=== PATIENT | female | born 1975 | race Hispanic/Latino ===

== ENCOUNTER 2020-07-14 21:17 | Inpatient (IN) | payer OTHER ==
[2020-07-14 22:48] LABS: ALT (SGPT) 19 U/L (8-55); AST (SGOT) 9 U/L (5-34); Albumin 3.1 g/dL (3.5-5.0); Alkaline Phosphatase 185 U/L (40-110); Anion Gap 15 mmol/L (10-20); BUN (Urea Nitrogen) 57 mg/dL (7.0-18.7); Bilirubin, Total 0.2 mg/dL (0.2-1.2); CK (CPK) 20 U/L (29-168); Calc. Creatinine Clearance 0 mL/min (70-130); Calcium 8.5 mg/dL (7.8-10.44); Carbon Dioxide 20 mmol/L (22-29); Chloride 98 mmol/L (98-107); Globulin 3.6 g/dL (2.4-3.5); Potassium 3.7 mmol/L (3.5-5.1); Protein, Total 6.7 g/dL (6.0-8.3); Sodium 129 mmol/L (136-145)
[2020-07-14 22:54] LABS: Glucose 584 mg/dL (70-105)
[2020-07-14 23:45] LABS: #Basophils 0.1 10x3/uL (0.0-0.2); #Eosinphils 0.1 10x3/uL (0.0-0.5); #Monocytes 0.7 10x3/uL (0.0-1.1); #Neutrophils 9.7 10x3/uL (1.5-8.4); %Basophils 0.5 % (0.0-2.0); %Eosinophils 0.7 % (0.0-6.0); %Lymphocytes 18.4 % (18.0-47.0); %Monocytes 5.5 % (0.0-10.0); %Neutrophils 73.8 % (40.0-75.0); Hemoglobin 11.6 g/dL (12.0-15.5); Mean Corpuscular HGB CONC 33.4 g/dL (32.0-36.0); Mean Corpuscular Hemoglobin 25.4 pg (27.0-33.0); Mean Corpuscular Volume 76.1 fl (81.6-98.3); Mean Platelet Volume 9.9 fl (7.4-10.4); Platelet Count 530 10x3/uL (150-450); RBC Distribution Width 14.2 % (11.5-14.5); Red Blood Cell (RBC) Count 4.56 10x6/uL (3.90-5.03); White Blood Cell (WBC) Count 13.1 10x3/uL (3.5-10.5)
[2020-07-15] MEDS ORDERED: Labetalol HCl 100 MG/20 ML VIAL ONE (02:06)
[2020-07-15] MEDS ORDERED: Lantus 1000 UNITS/10 ML VIAL ONE (02:09)
[2020-07-15 02:13] LABS: Actual Bicarbonate (HCO3v) 22 mEq/L (22-28); Base Excess -4.7 mEq/L (-2.0 to +3.0); Calcium, Ionized (venous) 1.15 mmol/L (1.16-1.32); Chloride (VBG) 103 mmol/L (98-106); Hemoglobin (Hb) 12.3 g/dL (11.7-16.0); Potassium (VBG) 4.31 mmol/L (3.70-5.30); Puncture Site Other Site; Sodium 131.8 mmol/L (133-146)
[2020-07-15] MEDS ORDERED: cloNIDine 0.1 MG TAB ONE (02:46)
[2020-07-15] MEDS ORDERED: Nitroglycerin 2% Ointment 1 INCH/1 GM Packet ONE (02:46)
[2020-07-15] MEDS ORDERED: Zolpidem Tartrate 5 MG TAB PO PRN (02:53)
[2020-07-15] MEDS ORDERED: Calcium Carbonate 500 MG ChewTAB PO PRN (02:53)
[2020-07-15] MEDS ORDERED: Ondansetron PF 4 MG/2 ML Vial IVP PRN (02:53)
[2020-07-15] MEDS ORDERED: Dextrose 50% Abboject 50 ML SYRINGE SLOW IVP PRN (02:53)
[2020-07-15] MEDS ORDERED: Guaifenesin DM 100-10/5 ML UDCUP PO PRN (02:53)
[2020-07-15] MEDS ORDERED: Dextrose 5% in Water 1,000 ML IV PRN (02:53)
[2020-07-15] MEDS ORDERED: HYDROcodone/Acetaminophen 5/325 mg Tablet PO PRN (02:53)
[2020-07-15] MEDS ORDERED: Acetaminophen 325 MG TAB PO PRN (02:53)
[2020-07-15] MEDS ORDERED: Senokot S 8.6-50 MG TAB PO PRN (02:53)
[2020-07-15] MEDS ORDERED: hydrALAZINE 20 MG/ML VIAL SLOW IVP PRN (02:57)
[2020-07-15] MEDS ORDERED: 1/2 NS w/KCL 20 mEq 1,000 ML IV SCH (03:15)
[2020-07-15 04:23] VITALS: BMI 36.7
[2020-07-15] MEDS ORDERED: HumaLOG 300 UNITS/3 ML VIAL SC SCH (04:45)
[2020-07-15 05:39] LABS: Anion Gap 13 mmol/L (10-20); BUN (Urea Nitrogen) 44 mg/dL (7.0-18.7); Calc. Creatinine Clearance 61 mL/min (70-130); Calcium 7.6 mg/dL (7.8-10.44); Carbon Dioxide 19 mmol/L (22-29); Chloride 105 mmol/L (98-107); Glucose 468 mg/dL (70-105); Potassium 3.3 mmol/L (3.5-5.1); Sodium 134 mmol/L (136-145)
[2020-07-15] MEDS: Enoxaparin Sodium 30 MG/0.3 ML SYRINGE SC SCH (08:21)
[2020-07-15] MEDS: Carvedilol 6.25 MG TAB PO SCH ×2 (08:21→17:21)
[2020-07-15] MEDS: Amlodipine 10 MG TAB PO SCH (08:21)
[2020-07-15] MEDS: hydrALAZINE 25 MG TAB PO SCH ×4 (08:21→21:08)
[2020-07-15] MEDS: Alogliptin 6.25 MG TAB PO SCH (08:21)
[2020-07-15] MEDS: Lantus 1000 UNITS/10 ML VIAL SC SCH ×2 (10:31→20:55)
[2020-07-15 11:06] LABS: Anion Gap 10 mmol/L (10-20); BUN (Urea Nitrogen) 49 mg/dL (7.0-18.7); Calc. Creatinine Clearance 54 mL/min (70-130); Calcium 7.7 mg/dL (7.8-10.44); Carbon Dioxide 22 mmol/L (22-29); Chloride 106 mmol/L (98-107); Glucose 361 mg/dL (70-105); Potassium 3.6 mmol/L (3.5-5.1); Sodium 134 mmol/L (136-145)
[2020-07-15 13:42] LABS: SARS-CoV-2 PCR by NAA Not Detected (NotDetected)
[2020-07-15] MEDS: HumaLOG 300 UNITS/3 ML VIAL SC PRN ×2 (17:21→20:55)
[2020-07-15] MEDS: Atorvastatin Calcium 20 MG TAB PO SCH (20:52)
[2020-07-15] MEDS ORDERED: Lantus 1000 UNITS/10 ML VIAL SC SCH (21:00)
[2020-07-15] MEDS ORDERED: FLU VACC QS2020-21(6MOS UP)/PF 60 MCG/0.5 ML SYRINGE IM ONE (21:00)
[2020-07-15 21:18] LABS: Bilirubin Neg (Negative); Blood, Urine 150 (Negative); Clarity Clear (Clear); Glucose, Urine (Dipstick) >=1000 mg/dL (Negative); Ketone, Urine Negative (Negative); Leukocyte 25 (Negative); Nitrite Negative (Negative); Protein, Urine (Dipstick) 500 mg/dl (Neg-Trace); Urobilinogen Normal mg/dL (Less than 2)
[2020-07-15 21:28] LABS: Bacteria/HPF 4+ HPF (None Seen); Mucous/LPF 2+ LPF (<2+)
[2020-07-15 21:29] LABS: WBC/HPF 21-50 HPF (0-3); White Blood Cell Cast 0-3 LPF (None Seen)
[2020-07-16] MEDS: HumaLOG 300 UNITS/3 ML VIAL SC PRN ×3 (05:02→20:31)
[2020-07-16 05:38] LABS: #Basophils 0.1 10x3/uL (0.0-0.2); #Eosinphils 0.2 10x3/uL (0.0-0.5); #Monocytes 0.9 10x3/uL (0.0-1.1); #Neutrophils 7.6 10x3/uL (1.5-8.4); %Basophils 0.5 % (0.0-2.0); %Eosinophils 1.6 % (0.0-6.0); %Lymphocytes 33.5 % (18.0-47.0); %Neutrophils 56.4 % (40.0-75.0); Hemoglobin 9.2 g/dL (12.0-15.5); Mean Corpuscular HGB CONC 32.1 g/dL (32.0-36.0); Mean Corpuscular Hemoglobin 24.5 pg (27.0-33.0); Mean Corpuscular Volume 76.5 fl (81.6-98.3); Mean Platelet Volume 9.9 fl (7.4-10.4); Platelet Count 415 10x3/uL (150-450); RBC Distribution Width 14.6 % (11.5-14.5); Red Blood Cell (RBC) Count 3.75 10x6/uL (3.90-5.03); White Blood Cell (WBC) Count 13.5 10x3/uL (3.5-10.5)
[2020-07-16 05:56] LABS: Anion Gap 10 mmol/L (10-20); BUN (Urea Nitrogen) 54 mg/dL (7.0-18.7); Calc. Creatinine Clearance 51 mL/min (70-130); Calcium 7.8 mg/dL (7.8-10.44); Carbon Dioxide 22 mmol/L (22-29); Chloride 106 mmol/L (98-107); Glucose 207 mg/dL (70-105); Magnesium 2.1 mg/dL (1.6-2.6); Potassium 3.6 mmol/L (3.5-5.1); Sodium 134 mmol/L (136-145)
[2020-07-16] MEDS ORDERED: Lantus 1000 UNITS/10 ML VIAL SC SCH (08:14)
[2020-07-16] MEDS: hydrALAZINE 25 MG TAB PO SCH ×4 (08:45→20:25)
[2020-07-16] MEDS: Amlodipine 10 MG TAB PO SCH (08:45)
[2020-07-16] MEDS: Enoxaparin Sodium 30 MG/0.3 ML SYRINGE SC SCH (08:45)
[2020-07-16] MEDS: Lantus 1000 UNITS/10 ML VIAL SC SCH ×2 (08:45→20:30)
[2020-07-16] MEDS: Alogliptin 6.25 MG TAB PO SCH (08:45)
[2020-07-16] MEDS: Carvedilol 6.25 MG TAB PO SCH ×2 (08:45→18:05)
[2020-07-16 08:49] LABS: Hemoglobin A1c 11.2 % (4.0-6.0)
[2020-07-16] MEDS: Sodium Chloride 0.9% 1,000 ML IV SCH ×2 (18:35→18:46)
[2020-07-16] MEDS: Atorvastatin Calcium 20 MG TAB PO SCH (20:25)
[2020-07-17] MEDS: HumaLOG 300 UNITS/3 ML VIAL SC PRN (04:47)
[2020-07-17] MEDS: Sodium Chloride 0.9% 1,000 ML IV SCH (06:05)
[2020-07-17 06:21] LABS: #Basophils 0.1 10x3/uL (0.0-0.2); #Eosinphils 0.2 10x3/uL (0.0-0.5); #Neutrophils 7.5 10x3/uL (1.5-8.4); %Basophils 0.5 % (0.0-2.0); %Eosinophils 1.6 % (0.0-6.0); %Lymphocytes 29.2 % (18.0-47.0); %Monocytes 8.1 % (0.0-10.0); %Neutrophils 59.8 % (40.0-75.0); Hemoglobin 9.9 g/dL (12.0-15.5); Mean Corpuscular HGB CONC 31.5 g/dL (32.0-36.0); Mean Corpuscular Hemoglobin 24.6 pg (27.0-33.0); Mean Corpuscular Volume 77.9 fl (81.6-98.3); Mean Platelet Volume 10.3 fl (7.4-10.4); Platelet Count 432 10x3/uL (150-450); RBC Distribution Width 14.7 % (11.5-14.5); Red Blood Cell (RBC) Count 4.03 10x6/uL (3.90-5.03); White Blood Cell (WBC) Count 12.5 10x3/uL (3.5-10.5)
[2020-07-17 06:32] LABS: ALT (SGPT) 10 U/L (8-55); AST (SGOT) 9 U/L (5-34); Albumin 2.5 g/dL (3.5-5.0); Alkaline Phosphatase 109 U/L (40-110); Anion Gap 10 mmol/L (10-20); BUN (Urea Nitrogen) 40 mg/dL (7.0-18.7); Bilirubin, Total 0.1 mg/dL (0.2-1.2); Calc. Creatinine Clearance 70 mL/min (70-130); Calcium 7.9 mg/dL (7.8-10.44); Carbon Dioxide 23 mmol/L (22-29); Chloride 107 mmol/L (98-107); Globulin 2.7 g/dL (2.4-3.5); Glucose 207 mg/dL (70-105); Phosphorus 3.9 mg/dL (2.3-4.7); Potassium 3.8 mmol/L (3.5-5.1); Protein, Total 5.2 g/dL (6.0-8.3); Sodium 136 mmol/L (136-145)
[2020-07-17] MEDS: Amlodipine 10 MG TAB PO SCH (08:44)
[2020-07-17] MEDS: Alogliptin 6.25 MG TAB PO SCH (08:45)
[2020-07-17] MEDS: hydrALAZINE 25 MG TAB PO SCH ×2 (08:45→13:24)
[2020-07-17] MEDS: Carvedilol 6.25 MG TAB PO SCH (08:45)
[2020-07-17] MEDS: Enoxaparin Sodium 30 MG/0.3 ML SYRINGE SC SCH (08:45)
[2020-07-17] MEDS: Lantus 1000 UNITS/10 ML VIAL SC SCH (08:49)
[2020-07-17 17:34] VITALS: BP 159/85; TEMP 97.9
[2020-07-17] MEDS ORDERED: Lantus 1000 UNITS/10 ML VIAL SC SCH (21:00)
== END 2020-07-17 17:20 | disposition home or self-care (01) | DRG 638 ==
LOC: CSHERS 21:17 → CSHTELE 07-15 04:17
PROVIDERS: ADMIT Student in an Organized Health Care Education/Training Program; ATTEND Internal Medicine
DX: E11.00 Type 2 diabetes mellitus with hyperosmolarity without nonketotic hyperglycemic-hyperosmolar coma (NKHHC) (principal); N17.9 Acute kidney failure, unspecified; E86.0 Dehydration; I16.0 Hypertensive urgency; E78.5 Hyperlipidemia, unspecified; E66.01 Morbid (severe) obesity due to excess calories; Z68.36 Body mass index [BMI] 36.0-36.9, adult; I12.9 Hypertensive chronic kidney disease with stage 1 through stage 4 chronic kidney disease, or unspecified chronic kidney disease; E11.22 Type 2 diabetes mellitus with diabetic chronic kidney disease; N18.2 Chronic kidney disease, stage 2 (mild); E88.81 Metabolic syndrome and other insulin resistance; D50.9 Iron deficiency anemia, unspecified; Z20.822 Contact with and (suspected) exposure to COVID-19
CPT/HCPCS: 36415; 36416; 80048; 80053; 81001; 82010; 82550; 82805; 83036; 83735; 84100; 85025; 87635; 96374; J1650; J1815; J3480; U0003; U0005

== ENCOUNTER 2021-12-24 04:35 | Inpatient (IN) | payer OTHER ==
[2021-12-24] MEDS ORDERED: Amlodipine 5 MG TAB ONE (05:38)
[2021-12-24] MEDS ORDERED: Furosemide 40 MG/4 ML VIAL ONE (05:38)
[2021-12-24] MEDS ORDERED: Nitroglycerin 2% Ointment 1 INCH/1 GM Packet ONE (05:39)
[2021-12-24 05:50] LABS: ALT (SGPT) 13 U/L (8-55); AST (SGOT) 22 U/L (5-34); Albumin 3.3 g/dL (3.5-5.0); Alkaline Phosphatase 118 U/L (40-110); Anion Gap 14 mmol/L (10-20); BUN (Urea Nitrogen) 43 mg/dL (7.0-18.7); Bilirubin, Total 0.3 mg/dL (0.2-1.2); Calc. Creatinine Clearance 0 mL/min (70-130); Calcium 8.2 mg/dL (7.8-10.44); Carbon Dioxide 21 mmol/L (22-29); Chloride 106 mmol/L (98-107); Estimated GFR 13; Globulin 2.7 g/dL (2.4-3.5); Glucose 353 mg/dL (70-105); Potassium 4.5 mmol/L (3.5-5.1); Sodium 136 mmol/L (136-145)
[2021-12-24 05:57] LABS: #Basophils 0.1 10x3/uL (0.0-0.2); #Eosinphils 0.1 10x3/uL (0.0-0.5); #Monocytes 0.7 10x3/uL (0.0-1.1); #Neutrophils 9.4 10x3/uL (1.5-8.4); %Basophils 0.6 % (0.0-2.0); %Eosinophils 0.8 % (0.0-6.0); %Lymphocytes 14.5 % (18.0-47.0); %Monocytes 5.4 % (0.0-10.0); %Neutrophils 78.3 % (40.0-75.0); Mean Corpuscular HGB CONC 30.9 g/dL (32.0-36.0); Mean Corpuscular Hemoglobin 23.1 pg (27.0-33.0); Mean Corpuscular Volume 74.6 fl (81.6-98.3); Mean Platelet Volume 10.7 fl (7.4-10.4); Platelet Count 397 10x3/uL (150-450); RBC Distribution Width 15.8 % (11.5-14.5); Red Blood Cell (RBC) Count 3.47 10x6/uL (3.90-5.03)
[2021-12-24 06:11] LABS: CKMB 12.6 ng/mL (0-6.6)
[2021-12-24] MEDS ORDERED: Lisinopril 10 MG TAB ONE (06:16)
[2021-12-24] MEDS ORDERED: Aspirin 325 MG TAB ONE (06:16)
[2021-12-24] MEDS ORDERED: Nitroglycerin 50 MG/250 ML BOT 250 ML ONE (06:54)
[2021-12-24] MEDS ORDERED: Heparin 5,000 UNITS/ML VIAL ONE (06:55)
[2021-12-24] MEDS ORDERED: Heparin 25,000 units/D5W 500 ML ONE (06:55)
[2021-12-24] MEDS ORDERED: Heparin 25,000 units/D5W 500 ML IVPB SCH (07:30)
[2021-12-24] MEDS ORDERED: Aspirin Chewable 81 MG TAB PO SCH (07:30)
[2021-12-24] MEDS ORDERED: Acetaminophen 325 MG TAB PO PRN (07:30)
[2021-12-24] MEDS ORDERED: Nitroglycerin 50 MG/250 ML BOT 250 ML IVPB SCH (07:30)
[2021-12-24] MEDS ORDERED: Heparin 10,000 UNITS/ 10 ML VIAL SLOW IVP SCH (07:30)
[2021-12-24] MEDS ORDERED: Ondansetron PF 4 MG/2 ML Vial IVP PRN (07:30)
[2021-12-24 08:06] LABS: SARS-CoV-2 NAA Rapid Test Not Detected (NotDetected)
[2021-12-24 08:12] LABS: Troponin I 4.763 ng/mL (< 0.028)
[2021-12-24 08:22] LABS: Hemoglobin 7.7 g/dL (12.0-15.5); Platelet Count 362 10x3/uL (150-450)
[2021-12-24] MEDS ORDERED: Famotidine/PF 20 mg/2ml Vial SLOW IVP SCH (11:00)
[2021-12-24] MEDS ORDERED: Dextrose 50% Abboject 50 ML SYRINGE SLOW IVP PRN (12:39)
[2021-12-24] MEDS ORDERED: HumaLOG 300 UNITS/3 ML VIAL SC PRN (12:39)
[2021-12-24] MEDS ORDERED: Dextrose 5% in Water 1,000 ML IV PRN (12:39)
[2021-12-24] MEDS ORDERED: Furosemide 40 MG/4 ML VIAL SLOW IVP SCH (13:30)
[2021-12-24 13:32] LABS: Iron 22 ug/dL (50-170); Iron Binding Capacity, Total 356 mcg/dL (265-497)
[2021-12-24 13:40] LABS: Hemoglobin A1c 6.9 % (4.0-6.0)
[2021-12-24] MEDS: HumaLOG 300 UNITS/3 ML VIAL SC PRN ×2 (14:15→16:52)
[2021-12-24 14:42] LABS: Bilirubin Neg (Negative); Blood, Urine 50 (Negative); Clarity Clear (Clear); Glucose, Urine (Dipstick) 250 mg/dL (Negative); Ketone, Urine Negative (Negative); Leukocyte Negative (Negative); Nitrite Negative (Negative); Protein, Urine (Dipstick) 500 mg/dl (Neg-Trace); Urobilinogen Normal mg/dL (Less than 2)
[2021-12-24 14:43] LABS: Urine Culture Reflex No No
[2021-12-24 14:55] LABS: RBC/HPF 0-3 HPF (0-3); Renal Epithelial 0-3 HPF (None Seen); Squamous Epithelial 0-3 HPF (0-3); WBC/HPF 0-3 HPF (0-3)
[2021-12-24 14:56] LABS: Bacteria/HPF Rare-Few HPF (None Seen)
[2021-12-24 16:40] LABS: Creatinine, Urine 22.59 mg/dL (47-110)
[2021-12-24] MEDS: Carvedilol 6.25 MG TAB PO SCH (20:45)
[2021-12-24] MEDS: Atorvastatin Calcium 40 MG TAB PO SCH (21:04)
[2021-12-25 05:06] LABS: ALT (SGPT) 11 U/L (8-55); AST (SGOT) 18 U/L (5-34); Albumin 2.7 g/dL (3.5-5.0); Alkaline Phosphatase 82 U/L (40-110); Bilirubin, Direct 0.2 mg/dL (0.1-0.3); Bilirubin, Total 0.4 mg/dL (0.2-1.2); Protein, Total 5.2 g/dL (6.0-8.3)
[2021-12-25 05:07] LABS: Anion Gap 12 mmol/L (10-20); BUN (Urea Nitrogen) 45 mg/dL (7.0-18.7); Calc. Creatinine Clearance 26 mL/min (70-130); Carbon Dioxide 22 mmol/L (22-29); Cardiac Risk 4.2 (Less than 4.5); Chloride 110 mmol/L (98-107); Cholesterol 137 mg/dl (< 200 Desired); Estimated GFR 14; Glucose 152 mg/dL (70-105); HDL Cholesterol 33 mg/dL (>60 Neg Risk); LDL Cholesterol, Calculated 78 mg/dL; Potassium 4.1 mmol/L (3.5-5.1); Sodium 140 mmol/L (136-145); Triglycerides 128 mg/dL (Less than 150)
[2021-12-25 05:10] LABS: #Basophils 0.1 10x3/uL (0.0-0.2); #Eosinphils 0.5 10x3/uL (0.0-0.5); #Neutrophils 7.4 10x3/uL (1.5-8.4); %Basophils 0.7 % (0.0-2.0); %Eosinophils 3.9 % (0.0-6.0); %Lymphocytes 22.7 % (18.0-47.0); %Monocytes 8.2 % (0.0-10.0); Hemoglobin 7.4 g/dL (12.0-15.5); Mean Corpuscular Hemoglobin 23.8 pg (27.0-33.0); Mean Corpuscular Volume 74.3 fl (81.6-98.3); Mean Platelet Volume 10.6 fl (7.4-10.4); Platelet Count 341 10x3/uL (150-450); RBC Distribution Width 15.8 % (11.5-14.5); Red Blood Cell (RBC) Count 3.11 10x6/uL (3.90-5.03); White Blood Cell (WBC) Count 11.6 10x3/uL (3.5-10.5)
[2021-12-25 07:15] VITALS: BMI 38.7
[2021-12-25] MEDS: Amlodipine 10 MG TAB PO SCH (08:00)
[2021-12-25] MEDS: Carvedilol 6.25 MG TAB PO SCH ×2 (08:04→17:42)
[2021-12-25] MEDS ORDERED: Famotidine/PF 20 mg/2ml Vial SLOW IVP SCH (09:00)
[2021-12-25] MEDS: HumaLOG 300 UNITS/3 ML VIAL SC PRN (11:39)
[2021-12-25] MEDS ORDERED: Furosemide 40 MG/4 ML VIAL SLOW IVP SCH ×2 (13:00→20:15)
[2021-12-25] MEDS ORDERED: Labetalol HCl 100 MG/20 ML VIAL SLOW IVP PRN (13:01)
[2021-12-25] MEDS: Ferrous Sulfate 325 MG TAB PO SCH (17:42)
[2021-12-25] MEDS: Atorvastatin Calcium 40 MG TAB PO SCH (20:59)
[2021-12-26 04:35] LABS: #Basophils 0.1 10x3/uL (0.0-0.2); #Eosinphils 0.4 10x3/uL (0.0-0.5); #Neutrophils 6.1 10x3/uL (1.5-8.4); %Basophils 0.6 % (0.0-2.0); %Eosinophils 3.5 % (0.0-6.0); %Lymphocytes 24.3 % (18.0-47.0); Hemoglobin 7.8 g/dL (12.0-15.5); Mean Corpuscular HGB CONC 31.7 g/dL (32.0-36.0); Mean Corpuscular Hemoglobin 24.1 pg (27.0-33.0); Mean Corpuscular Volume 76.2 fl (81.6-98.3); Mean Platelet Volume 10.3 fl (7.4-10.4); Platelet Count 274 10x3/uL (150-450); RBC Distribution Width 15.7 % (11.5-14.5); Red Blood Cell (RBC) Count 3.23 10x6/uL (3.90-5.03); White Blood Cell (WBC) Count 9.9 10x3/uL (3.5-10.5)
[2021-12-26 04:58] LABS: Anion Gap 13 mmol/L (10-20); BUN (Urea Nitrogen) 45 mg/dL (7.0-18.7); Calc. Creatinine Clearance 26 mL/min (70-130); Calcium 8.4 mg/dL (7.8-10.44); Carbon Dioxide 21 mmol/L (22-29); Chloride 107 mmol/L (98-107); Estimated GFR 14; Glucose 178 mg/dL (70-105); Magnesium 1.9 mg/dL (1.6-2.6); Sodium 137 mmol/L (136-145)
[2021-12-26] MEDS: Carvedilol 6.25 MG TAB PO SCH (07:58)
[2021-12-26] MEDS: Ferrous Sulfate 325 MG TAB PO SCH ×2 (07:58→17:34)
[2021-12-26] MEDS: Amlodipine 10 MG TAB PO SCH (07:58)
[2021-12-26 07:59] LABS: Platelet Count 296 10x3/uL (150-450)
[2021-12-26] MEDS: Albumin 25% 25 GM/100 ML BOT IVPB SCH ×3 (08:00→20:44)
[2021-12-26] MEDS ORDERED: Carvedilol 6.25 MG TAB PO SCH (10:30)
[2021-12-26] MEDS: HumaLOG 300 UNITS/3 ML VIAL SC PRN (11:46)
[2021-12-26] MEDS: Isosorbide Dinitrate 20 MG TAB PO SCH ×2 (14:37→22:04)
[2021-12-26] MEDS ORDERED: Benzonatate 100 MG CAP PO SCH (17:15)
[2021-12-26] MEDS: Carvedilol 12.5 MG TAB PO SCH (17:34)
[2021-12-26] MEDS: Heparin 5,000 UNITS/ML VIAL SC SCH (22:00)
[2021-12-26] MEDS: Benzonatate 100 MG CAP PO SCH (22:04)
[2021-12-26] MEDS: Atorvastatin Calcium 40 MG TAB PO SCH (22:04)
[2021-12-27] MEDS: Albumin 25% 25 GM/100 ML BOT IVPB SCH (02:49)
[2021-12-27 05:27] LABS: #Eosinphils 0.2 10x3/uL (0.0-0.5); #Monocytes 0.7 10x3/uL (0.0-1.1); #Neutrophils 4.9 10x3/uL (1.5-8.4); %Basophils 0.6 % (0.0-2.0); %Eosinophils 2.8 % (0.0-6.0); %Lymphocytes 18.9 % (18.0-47.0); %Monocytes 9.5 % (0.0-10.0); %Neutrophils 67.9 % (40.0-75.0); Hemoglobin 7.4 g/dL (12.0-15.5); Mean Corpuscular HGB CONC 31.4 g/dL (32.0-36.0); Mean Corpuscular Hemoglobin 23.9 pg (27.0-33.0); Mean Corpuscular Volume 76.1 fl (81.6-98.3); Platelet Count 276 10x3/uL (150-450); White Blood Cell (WBC) Count 7.2 10x3/uL (3.5-10.5)
[2021-12-27 05:37] LABS: Phosphorus 4.6 mg/dL (2.3-4.7)
[2021-12-27 05:38] LABS: Anion Gap 13 mmol/L (10-20); BUN (Urea Nitrogen) 44 mg/dL (7.0-18.7); Calc. Creatinine Clearance 27 mL/min (70-130); Calcium 8.7 mg/dL (7.8-10.44); Carbon Dioxide 21 mmol/L (22-29); Chloride 110 mmol/L (98-107); Estimated GFR 15; Glucose 158 mg/dL (70-105); Magnesium 2.1 mg/dL (1.6-2.6); Potassium 4.1 mmol/L (3.5-5.1); Sodium 140 mmol/L (136-145)
[2021-12-27] MEDS: Benzonatate 100 MG CAP PO SCH (08:35)
[2021-12-27] MEDS: Ferrous Sulfate 325 MG TAB PO SCH (08:35)
[2021-12-27] MEDS: Amlodipine 10 MG TAB PO SCH (08:35)
[2021-12-27] MEDS: Isosorbide Dinitrate 20 MG TAB PO SCH (08:36)
[2021-12-27] MEDS: Heparin 5,000 UNITS/ML VIAL SC SCH (08:36)
[2021-12-27] MEDS: Carvedilol 12.5 MG TAB PO SCH (08:36)
[2021-12-27] MEDS ORDERED: EPOETIN ALFA-EPBX (ESRD) 4,000 UNIT/ML VIAL SC SCH (10:00)
[2021-12-27] MEDS: HumaLOG 300 UNITS/3 ML VIAL SC PRN (13:07)
[2021-12-27 13:48] VITALS: TEMP 97.9
[2021-12-27 13:49] VITALS: BP 158/74
[2021-12-28] MEDS ORDERED: Calcitriol 0.25 MCG CAP PO SCH (09:00)
== END 2021-12-27 15:09 | disposition home or self-care (01) | DRG 280 ==
LOC: CSHERS 04:35 → CSHIMCU 10:14 → CSHTELE 12-26 05:58
PROVIDERS: ADMIT Family Medicine; ATTEND Internal Medicine
PROC: 30233N1 Transfusion of Nonautologous Red Blood Cells into Peripheral Vein, Percutaneous Approach (ICD-10-PCS; principal; 2021-12-24)
PROC: 30233J1 Transfusion of Nonautologous Serum Albumin into Peripheral Vein, Percutaneous Approach (ICD-10-PCS; 2021-12-26)
DX: I13.0 Hypertensive heart and chronic kidney disease with heart failure and stage 1 through stage 4 chronic kidney disease, or unspecified chronic kidney disease (principal); I21.A1 Myocardial infarction type 2; I50.43 Acute on chronic combined systolic (congestive) and diastolic (congestive) heart failure; I16.1 Hypertensive emergency; N17.9 Acute kidney failure, unspecified; I16.9 Hypertensive crisis, unspecified; N25.81 Secondary hyperparathyroidism of renal origin; N18.4 Chronic kidney disease, stage 4 (severe); I42.9 Cardiomyopathy, unspecified; E78.5 Hyperlipidemia, unspecified; E11.22 Type 2 diabetes mellitus with diabetic chronic kidney disease; Z20.822 Contact with and (suspected) exposure to COVID-19; E11.69 Type 2 diabetes mellitus with other specified complication; E11.65 Type 2 diabetes mellitus with hyperglycemia; E78.2 Mixed hyperlipidemia; D63.1 Anemia in chronic kidney disease; E66.9 Obesity, unspecified; Z79.899 Other long term (current) drug therapy; Z98.890 Other specified postprocedural states; Z91.14 Patient's other noncompliance with medication regimen; Z68.38 Body mass index [BMI] 38.0-38.9, adult
CPT/HCPCS: 36415; 36416; 36430; 71045; 76705; 76770; 80048; 80053; 80061; 80076; 81001; 82553; 82570; 82728; 83036; 83540; 83550; 83690; 83735; 83880; 83930; 83935; 83970; 84100; 84300; 84443; 84484; 84540; 85014; 85018; 85025; 85046; 85049; 85730; 86850; 86900; 86901; 89190; 93005; 93010; 93306; 93880; J1644; J1815; J1940; P9016; P9047; Q5105; S0028; U0002

== ENCOUNTER 2022-06-18 14:10 | Inpatient (IN) | payer OTHER ==
[2022-06-18 15:43] LABS: #Basophils 0.1 10x3/uL (0.0-0.2); #Eosinphils 0.1 10x3/uL (0.0-0.5); #Monocytes 0.4 10x3/uL (0.0-1.1); %Basophils 0.7 % (0.0-2.0); %Eosinophils 0.9 % (0.0-6.0); %Lymphocytes 8.1 % (18.0-47.0); %Monocytes 4.1 % (0.0-10.0); %Neutrophils 85.6 % (40.0-75.0); Hemoglobin 6.9 g/dL (12.0-15.5); Mean Corpuscular HGB CONC 30.9 g/dL (32.0-36.0); Mean Corpuscular Hemoglobin 24.1 pg (27.0-33.0); Mean Platelet Volume 10.6 fl (7.4-10.4); Platelet Count 253 10x3/uL (150-450); Red Blood Cell (RBC) Count 2.86 10x6/uL (3.90-5.03); White Blood Cell (WBC) Count 10.5 10x3/uL (3.5-10.5)
[2022-06-18 15:55] LABS: ALT (SGPT) 8 U/L (8-55); AST (SGOT) 13 U/L (5-34); Albumin 3.6 g/dL (3.5-5.0); Alkaline Phosphatase 174 U/L (40-110); Anion Gap 18 mmol/L (10-20); BUN (Urea Nitrogen) 75 mg/dL (7.0-18.7); Bilirubin, Total 0.4 mg/dL (0.2-1.2); Calc. Creatinine Clearance 0 mL/min (70-130); Calcium 8.2 mg/dL (7.8-10.44); Carbon Dioxide 17 mmol/L (22-29); Chloride 106 mmol/L (98-107); Estimated GFR 8; Globulin 3.1 g/dL (2.4-3.5); Glucose 197 mg/dL (70-105); Lipase 20 U/L (8-78); Potassium 4.5 mmol/L (3.5-5.1); Protein, Total 6.7 g/dL (6.0-8.3); Sodium 136 mmol/L (136-145)
[2022-06-18 16:18] LABS: CKMB 3.3 ng/mL (0-6.6)
[2022-06-18] MEDS ORDERED: Aspirin Chewable 81 MG TAB ONE (16:45)
[2022-06-18] MEDS ORDERED: Furosemide 40 MG/4 ML VIAL ONE (16:45)
[2022-06-18] MEDS ORDERED: Acetaminophen 325 MG TAB PO PRN (17:13)
[2022-06-18] MEDS ORDERED: Ondansetron ODT 4 MG TAB PO PRN (17:13)
[2022-06-18] MEDS ORDERED: Ondansetron PF 4 MG/2 ML Vial IVP PRN (17:13)
[2022-06-18] MEDS ORDERED: HumaLOG 300 UNITS/3 ML VIAL SC PRN ×2 (17:33)
[2022-06-18] MEDS ORDERED: Dextrose 50% Abboject 50 ML SYRINGE SLOW IVP PRN (17:33)
[2022-06-18] MEDS ORDERED: Dextrose 5% in Water 1,000 ML IV PRN (17:33)
[2022-06-18] MEDS ORDERED: Fentanyl 100 MCG/2 ML VIAL ONE (17:34)
[2022-06-18 17:57] LABS: SARS-CoV-2 NAA Rapid Test Not Detected (NotDetected)
[2022-06-18] MEDS ORDERED: Furosemide 100 MG/10 ML VIAL SLOW IVP SCH ×2 (18:45→23:00)
[2022-06-18] MEDS ORDERED: Metolazone 5 MG TAB PO SCH (20:00)
[2022-06-18 22:21] VITALS: BMI 34.7
[2022-06-18] MEDS: HYDROcodone/Acetaminophen 5/325 mg Tablet PO PRN (23:07)
[2022-06-18 23:59] LABS: Bilirubin Neg (Negative); Blood, Urine 50 (Negative); Clarity Clear (Clear); Glucose, Urine (Dipstick) 100 mg/dL (Negative); Ketone, Urine Negative (Negative); Leukocyte Negative (Negative); Nitrite Negative (Negative); Protein, Urine (Dipstick) 500 mg/dl (Neg-Trace); Specific Gravity, Urine 1.015 (1.005-1.030); Urobilinogen Normal mg/dL (Less than 2)
[2022-06-19 00:28] LABS: Bacteria/HPF Rare-Few HPF (None Seen); CAUTI Indications for Culture Pelvic or flank pain; Squamous Epithelial 0-3 HPF (0-3); WBC/HPF 0-3 HPF (0-3)
[2022-06-19 00:29] LABS: Urine Culture Reflex No No
[2022-06-19 06:16] LABS: #Basophils 0.1 10x3/uL (0.0-0.2); #Eosinphils 0.3 10x3/uL (0.0-0.5); #Monocytes 0.7 10x3/uL (0.0-1.1); #Neutrophils 5.8 10x3/uL (1.5-8.4); %Basophils 0.8 % (0.0-2.0); %Eosinophils 3.8 % (0.0-6.0); %Lymphocytes 22.5 % (18.0-47.0); %Monocytes 8.1 % (0.0-10.0); %Neutrophils 64.4 % (40.0-75.0); Hemoglobin 7.4 g/dL (12.0-15.5); Mean Corpuscular HGB CONC 31.2 g/dL (32.0-36.0); Mean Corpuscular Hemoglobin 24.7 pg (27.0-33.0); Platelet Count 253 10x3/uL (150-450); RBC Distribution Width 16.5 % (11.5-14.5)
[2022-06-19] MEDS ORDERED: Furosemide 100 MG/10 ML VIAL SLOW IVP SCH (06:30)
[2022-06-19 06:49] LABS: Anion Gap 18 mmol/L (10-20); BUN (Urea Nitrogen) 74 mg/dL (7.0-18.7); Calc. Creatinine Clearance 14 mL/min (70-130); Calcium 8.5 mg/dL (7.8-10.44); Carbon Dioxide 17 mmol/L (22-29); Chloride 108 mmol/L (98-107); Estimated GFR 8; Glucose 119 mg/dL (70-105); Iron 42 ug/dL (50-170); Iron Binding Capacity, Total 249 mcg/dL (265-497); Potassium 4.2 mmol/L (3.5-5.1); Sodium 139 mmol/L (136-145)
[2022-06-19] MEDS ORDERED: Iron, Sodium Ferric Gluconate 250 MG in Sodium Chloride 0.9% 250 ML 250 ML IVPB SCH (08:45)
[2022-06-19] MEDS: Sodium Bicarbonate Tab 325 MG TAB PO SCH ×3 (09:29→21:17)
[2022-06-19] MEDS: Iron Sucrose Complex 200 MG in Sodium Chloride 0.9% 100 ML IVPB SCH (10:03)
[2022-06-19] MEDS: Famotidine 20 MG TAB PO SCH (17:16)
[2022-06-19] MEDS: Sevelamer Carbonate 800 MG TAB PO SCH (17:18)
[2022-06-19] MEDS ORDERED: Amlodipine 10 MG TAB PO SCH (18:30)
[2022-06-19] MEDS: HYDROcodone/Acetaminophen 5/325 mg Tablet PO PRN (18:45)
[2022-06-19] MEDS: Atorvastatin Calcium 40 MG TAB PO SCH (21:17)
[2022-06-20 06:50] LABS: #Basophils 0.1 10x3/uL (0.0-0.2); #Eosinphils 0.5 10x3/uL (0.0-0.5); #Monocytes 0.9 10x3/uL (0.0-1.1); #Neutrophils 6.8 10x3/uL (1.5-8.4); %Basophils 0.7 % (0.0-2.0); %Eosinophils 4.7 % (0.0-6.0); %Lymphocytes 15.4 % (18.0-47.0); %Neutrophils 69.7 % (40.0-75.0); Mean Corpuscular Hemoglobin 24.5 pg (27.0-33.0); Mean Corpuscular Volume 78.9 fl (81.6-98.3); Mean Platelet Volume 10.5 fl (7.4-10.4); Platelet Count 272 10x3/uL (150-450); RBC Distribution Width 16.7 % (11.5-14.5); Red Blood Cell (RBC) Count 3.27 10x6/uL (3.90-5.03); White Blood Cell (WBC) Count 9.7 10x3/uL (3.5-10.5)
[2022-06-20 06:54] LABS: Albumin 3.4 g/dL (3.5-5.0); Anion Gap 18 mmol/L (10-20); BUN (Urea Nitrogen) 80 mg/dL (7.0-18.7); BUN/Creatinine Ratio 12.31; Calc. Creatinine Clearance 14 mL/min (70-130); Calcium 8.5 mg/dL (7.8-10.44); Carbon Dioxide 18 mmol/L (22-29); Chloride 107 mmol/L (98-107); Estimated GFR 7; Glucose 79 mg/dL (70-105); Potassium 3.8 mmol/L (3.5-5.1); Sodium 139 mmol/L (136-145)
[2022-06-20] MEDS ORDERED: Furosemide 100 MG/10 ML VIAL SLOW IVP SCH (09:45)
[2022-06-20] MEDS: Amlodipine 10 MG TAB PO SCH (09:46)
[2022-06-20] MEDS: Sodium Bicarbonate Tab 325 MG TAB PO SCH ×3 (09:46→22:07)
[2022-06-20] MEDS: Ferrous Sulfate 325 MG TAB PO SCH (09:46)
[2022-06-20] MEDS: Sevelamer Carbonate 800 MG TAB PO SCH ×3 (09:46→17:44)
[2022-06-20] MEDS: Alogliptin 6.25 MG TAB PO SCH (09:47)
[2022-06-20] MEDS: Calcitriol 0.25 MCG CAP PO SCH (09:47)
[2022-06-20] MEDS: Iron Sucrose Complex 200 MG in Sodium Chloride 0.9% 100 ML IVPB SCH (09:48)
[2022-06-20 11:07] LABS: HBSAg Index 0.16 S/CO (0-0.99); Hep B Surf Ag Non-Reactive S/CO (NonReactive)
[2022-06-20] MEDS ORDERED: Labetalol HCl 100 MG TAB PO SCH (14:30)
[2022-06-20] MEDS: Famotidine 20 MG TAB PO SCH (16:06)
[2022-06-20 16:53] LABS: HBSAB Concentration Less than 8.00 mIU/mL; Hep B Core Total Ab Non-Reactive (NonReactive); Hep B Core Total Index 0.15 S/CO (0-0.79); Hep B Surf AB Non-Reactive (NonReactive); Hep C IgG Ab Non-Reactive (NonReactive); Hep C Index 0.04 S/CO (0-0.79)
[2022-06-20] MEDS: Furosemide 100 MG/10 ML VIAL SLOW IVP SCH (17:44)
[2022-06-20] MEDS: Labetalol HCl 100 MG TAB PO SCH (22:07)
[2022-06-20] MEDS: Atorvastatin Calcium 40 MG TAB PO SCH (22:08)
[2022-06-21 06:41] LABS: Anion Gap 20 mmol/L (10-20); BUN (Urea Nitrogen) 83 mg/dL (7.0-18.7); Calc. Creatinine Clearance 13 mL/min (70-130); Calcium 8.7 mg/dL (7.8-10.44); Carbon Dioxide 19 mmol/L (22-29); Chloride 104 mmol/L (98-107); Estimated GFR 7; Glucose 147 mg/dL (70-105); Potassium 3.8 mmol/L (3.5-5.1); Sodium 139 mmol/L (136-145)
[2022-06-21] MEDS: Amlodipine 10 MG TAB PO SCH (07:49)
[2022-06-21] MEDS: Labetalol HCl 100 MG TAB PO SCH ×2 (07:50→21:09)
[2022-06-21] MEDS: Sevelamer Carbonate 800 MG TAB PO SCH ×3 (08:22→16:08)
[2022-06-21] MEDS: Sodium Bicarbonate Tab 325 MG TAB PO SCH ×3 (08:22→21:09)
[2022-06-21] MEDS: Alogliptin 6.25 MG TAB PO SCH (08:23)
[2022-06-21] MEDS: Furosemide 100 MG/10 ML VIAL SLOW IVP SCH ×2 (08:23→16:08)
[2022-06-21] MEDS: Calcitriol 0.25 MCG CAP PO SCH (08:23)
[2022-06-21] MEDS: Ferrous Sulfate 325 MG TAB PO SCH (08:23)
[2022-06-21] MEDS ORDERED: EPOETIN ALFA-EPBX (ESRD) 4,000 UNIT/ML VIAL SC SCH (09:00)
[2022-06-21] MEDS: Iron Sucrose Complex 200 MG in Sodium Chloride 0.9% 100 ML IVPB SCH (12:15)
[2022-06-21 14:42] LABS: HBSAB Concentration Less than 8.00 mIU/mL; Hep B Core Total Ab Non-Reactive (NonReactive); Hep B Core Total Index 0.13 S/CO (0-0.79); Hep B Surf AB Non-Reactive (NonReactive); Hep C IgG Ab Non-Reactive (NonReactive); Hep C Index 0.09 S/CO (0-0.79)
[2022-06-21] MEDS: Famotidine 20 MG TAB PO SCH (16:08)
[2022-06-21 20:13] LABS: Hep B Surf Ag Non-Reactive S/CO (NonReactive)
[2022-06-21] MEDS: Atorvastatin Calcium 40 MG TAB PO SCH (21:09)
[2022-06-22 05:08] LABS: Anion Gap 15 mmol/L (10-20); BUN (Urea Nitrogen) 65 mg/dL (7.0-18.7); Calc. Creatinine Clearance 15 mL/min (70-130); Calcium 8.4 mg/dL (7.8-10.44); Carbon Dioxide 26 mmol/L (22-29); Chloride 102 mmol/L (98-107); Estimated GFR 8; Glucose 127 mg/dL (70-105); Potassium 3.5 mmol/L (3.5-5.1); Sodium 139 mmol/L (136-145)
[2022-06-22 05:14] LABS: #Basophils 0.1 10x3/uL (0.0-0.2); #Eosinphils 0.4 10x3/uL (0.0-0.5); #Neutrophils 5.9 10x3/uL (1.5-8.4); %Basophils 0.8 % (0.0-2.0); %Eosinophils 4.9 % (0.0-6.0); %Lymphocytes 18.1 % (18.0-47.0); %Monocytes 11.1 % (0.0-10.0); %Neutrophils 64.4 % (40.0-75.0); Hemoglobin 7.4 g/dL (12.0-15.5); Mean Corpuscular HGB CONC 31.1 g/dL (32.0-36.0); Mean Corpuscular Hemoglobin 24.7 pg (27.0-33.0); Mean Corpuscular Volume 79.6 fl (81.6-98.3); Mean Platelet Volume 10.5 fl (7.4-10.4); Platelet Count 244 10x3/uL (150-450); RBC Distribution Width 16.8 % (11.5-14.5); Red Blood Cell (RBC) Count 2.99 10x6/uL (3.90-5.03); White Blood Cell (WBC) Count 9.1 10x3/uL (3.5-10.5)
[2022-06-22] MEDS: Sevelamer Carbonate 800 MG TAB PO SCH ×3 (08:59→17:33)
[2022-06-22] MEDS: Alogliptin 6.25 MG TAB PO SCH (08:59)
[2022-06-22] MEDS: Calcitriol 0.25 MCG CAP PO SCH (12:41)
[2022-06-22] MEDS: Labetalol HCl 100 MG TAB PO SCH ×2 (12:41→21:16)
[2022-06-22] MEDS: Amlodipine 10 MG TAB PO SCH (12:41)
[2022-06-22] MEDS: Furosemide 100 MG/10 ML VIAL SLOW IVP SCH ×2 (12:42→17:33)
[2022-06-22] MEDS: Ferrous Sulfate 325 MG TAB PO SCH (12:42)
[2022-06-22] MEDS ORDERED: Iron Sucrose Complex 200 MG in Sodium Chloride 0.9% 100 ML IVPB SCH (12:45)
[2022-06-22] MEDS: Iron Sucrose Complex 200 MG in Sodium Chloride 0.9% 100 ML IVPB SCH (13:22)
[2022-06-22] MEDS: Famotidine 20 MG TAB PO SCH (17:33)
[2022-06-22] MEDS: Atorvastatin Calcium 40 MG TAB PO SCH (21:15)
[2022-06-23 04:53] LABS: #Basophils 0.1 10x3/uL (0.0-0.2); #Eosinphils 0.5 10x3/uL (0.0-0.5); #Monocytes 1.3 10x3/uL (0.0-1.1); #Neutrophils 6.8 10x3/uL (1.5-8.4); %Basophils 0.7 % (0.0-2.0); %Eosinophils 4.8 % (0.0-6.0); %Lymphocytes 17.8 % (18.0-47.0); %Monocytes 11.9 % (0.0-10.0); %Neutrophils 64.2 % (40.0-75.0); Mean Corpuscular HGB CONC 30.9 g/dL (32.0-36.0); Mean Corpuscular Hemoglobin 24.8 pg (27.0-33.0); Mean Corpuscular Volume 80.2 fl (81.6-98.3); Mean Platelet Volume 10.3 fl (7.4-10.4); Platelet Count 250 10x3/uL (150-450); RBC Distribution Width 17.2 % (11.5-14.5); Red Blood Cell (RBC) Count 3.23 10x6/uL (3.90-5.03); White Blood Cell (WBC) Count 10.6 10x3/uL (3.5-10.5)
[2022-06-23 04:59] LABS: Anion Gap 15 mmol/L (10-20); BUN (Urea Nitrogen) 42 mg/dL (7.0-18.7); Calc. Creatinine Clearance 18 mL/min (70-130); Calcium 8.4 mg/dL (7.8-10.44); Carbon Dioxide 28 mmol/L (22-29); Chloride 98 mmol/L (98-107); Estimated GFR 11; Glucose 113 mg/dL (70-105); Potassium 3.8 mmol/L (3.5-5.1); Sodium 137 mmol/L (136-145)
[2022-06-23] MEDS: Alogliptin 6.25 MG TAB PO SCH (08:40)
[2022-06-23] MEDS: Sevelamer Carbonate 800 MG TAB PO SCH ×2 (08:40→12:42)
[2022-06-23] MEDS: Calcitriol 0.25 MCG CAP PO SCH (08:41)
[2022-06-23] MEDS: Ferrous Sulfate 325 MG TAB PO SCH (08:41)
[2022-06-23] MEDS: Labetalol HCl 100 MG TAB PO SCH (08:41)
[2022-06-23] MEDS: Furosemide 100 MG/10 ML VIAL SLOW IVP SCH (08:42)
[2022-06-23] MEDS: Amlodipine 10 MG TAB PO SCH (08:42)
[2022-06-23 08:58] VITALS: BP 134/73; TEMP 99.7
== END 2022-06-23 15:30 | disposition home or self-care (01) | DRG 698 ==
LOC: CSHERS 14:10 → CSHTELE 19:54
PROVIDERS: ADMIT Family Medicine; ATTEND Family Medicine
PROC: 30233N1 Transfusion of Nonautologous Red Blood Cells into Peripheral Vein, Percutaneous Approach (ICD-10-PCS; principal; 2022-06-18)
PROC: 5A1D70Z Performance of Urinary Filtration, Intermittent, Less than 6 Hours Per Day (ICD-10-PCS; 2022-06-21)
DX: E11.22 Type 2 diabetes mellitus with diabetic chronic kidney disease (principal); I50.43 Acute on chronic combined systolic (congestive) and diastolic (congestive) heart failure; J96.01 Acute respiratory failure with hypoxia; I13.2 Hypertensive heart and chronic kidney disease with heart failure and with stage 5 chronic kidney disease, or end stage renal disease; E87.20 Acidosis, unspecified; N18.5 Chronic kidney disease, stage 5; Z20.822 Contact with and (suspected) exposure to COVID-19; I34.0 Nonrheumatic mitral (valve) insufficiency; M54.9 Dorsalgia, unspecified; E66.9 Obesity, unspecified; D50.9 Iron deficiency anemia, unspecified; N17.9 Acute kidney failure, unspecified; D63.1 Anemia in chronic kidney disease; E78.5 Hyperlipidemia, unspecified; Z79.899 Other long term (current) drug therapy; Z79.82 Long term (current) use of aspirin; Z79.4 Long term (current) use of insulin; I25.2 Old myocardial infarction; Z68.32 Body mass index [BMI] 32.0-32.9, adult
CPT/HCPCS: 36415; 36416; 36430; 71045; 80048; 80053; 80069; 81001; 82553; 82728; 83540; 83550; 83690; 83880; 84484; 85025; 86704; 86850; 86900; 86901; 90935; 93005; 94760; 96374; 96375; G0257; J1756; J1940; J2405; J3010; J3490; P9016; Q5105; U0002

== ENCOUNTER 2023-08-22 17:48 | Emergency (ER) | payer BC | END 2023-08-22 18:42 | disposition left against medical advice (07) | LOC: CSHERS 17:48 | DX: R53.1 Weakness (principal); R11.2 Nausea with vomiting, unspecified; R19.7 Diarrhea, unspecified; E11.22 Type 2 diabetes mellitus with diabetic chronic kidney disease; N18.4 Chronic kidney disease, stage 4 (severe) | CPT/HCPCS: 71045; 93005 ==

== ENCOUNTER 2023-09-16 00:59 | Emergency (ER) | payer BC ==
[2023-09-16] MEDS ORDERED: Diazepam 10 MG/2 ML SYRINGE ONE (01:25)
== END 2023-09-16 01:34 | disposition home or self-care (01) ==
LOC: CSHERS 00:59
DX: R25.2 Cramp and spasm (principal); I50.9 Heart failure, unspecified; E11.22 Type 2 diabetes mellitus with diabetic chronic kidney disease; N18.4 Chronic kidney disease, stage 4 (severe); Z99.2 Dependence on renal dialysis
CPT/HCPCS: 96372; 99283; J3360

== ENCOUNTER 2023-12-13 10:51 | Emergency (ER) | payer BC ==
[2023-12-13] MEDS ORDERED: Ondansetron PF 4 MG/2 ML Vial ONE (11:23)
[2023-12-13] MEDS ORDERED: Iopamidol 300 61% 100 ML VIAL FS ONE (11:35)
[2023-12-13 11:47] LABS: #Basophils 0.06 10x3/uL (0.0-0.2); #Eosinphils 0.01 10x3/uL (0.0-0.5); #Monocytes 0.58 10x3/uL (0.0-1.1); #Neutrophils 12.67 10x3/uL (1.5-8.4); %Basophils 0.4 % (0.0-2.0); %Eosinophils 0.1 % (0.0-6.0); %Lymphocytes 8.7 % (18.0-47.0); %Monocytes 3.9 % (0.0-10.0); %Neutrophils 86.2 % (40.0-75.0); Hemoglobin 11.3 g/dL (12.0-15.5); Mean Corpuscular HGB CONC 32.3 g/dL (32.0-36.0); Mean Corpuscular Hemoglobin 27.9 pg (27.0-33.0); Mean Corpuscular Volume 86.4 fL (81.6-98.3); Mean Platelet Volume 10.3 fL (7.4-10.4); Platelet Count 305 10x3/uL (150-450); RBC Distribution Width 13.5 % (11.5-14.5); Red Blood Cell (RBC) Count 4.05 10x6/uL (3.90-5.03); White Blood Cell (WBC) Count 14.7 10x3/uL (3.5-10.5)
[2023-12-13 11:55] LABS: Calcium 9.6 mg/dL (7.8-10.44); Chloride 101 mmol/L (98-107); Potassium 5.1 mmol/L (3.5-5.1); Sodium 136 mmol/L (136-145)
[2023-12-13 11:57] LABS: Phosphorus 5.1 mg/dL (2.3-4.7)
[2023-12-13 12:07] LABS: Troponin I 4.505 ng/mL (< 0.028)
[2023-12-13 12:10] LABS: ALT (SGPT) 57 U/L (8-55); AST (SGOT) 41 U/L (5-34); Albumin 3.8 g/dL (3.5-5.0); Alkaline Phosphatase 253 U/L (40-110); Anion Gap 22 mmol/L (10-20); BUN (Urea Nitrogen) 57 mg/dL (7.0-18.7); Bilirubin, Total 0.4 mg/dL (0.2-1.2); Calc. Creatinine Clearance 0 mL/min (70-130); Carbon Dioxide 18 mmol/L (22-29); Estimated GFR 6; Globulin 3.6 g/dL (2.4-3.5); Glucose 302 mg/dL (70-105); Magnesium 2.3 mg/dL (1.6-2.6); Protein, Total 7.4 g/dL (6.0-8.3)
[2023-12-13 12:14] LABS: Influenza A by NAA Not Detected (NotDetected); Influenza B by NAA Not Detected (NotDetected); SARS-CoV-2 NAA Rapid Test Not Detected (NotDetected)
[2023-12-13 12:31] LABS: Actual Bicarbonate (HCO3v) 20.3 mEq/L (22-28); Analyzer IN Cardio CS ER; Base Excess -4.2 mEq/L (-2 - +2); Calcium, Ionized (venous) 1.15 mmol/L (1.16-1.32); Chloride (VBG) 101 mmol/L (98-106); Hematocrit-VBG 35 % (36.0-47.0); Hemoglobin (Hb) 11.9 g/dL (11.7-16.0); Potassium (VBG) 5.04 mmol/L (3.70-5.30); Puncture Site Other Site; RapidComm Collect By RN; Sodium 137 mmol/L (133-146); pH (venous) 7.381 (7.32-7.43)
[2023-12-13] MEDS ORDERED: Aspirin 325 MG TAB ONE (14:22)
[2023-12-13] MEDS ORDERED: Acetaminophen 500 MG TAB ONE (14:22)
[2023-12-13] MEDS ORDERED: Enoxaparin 80 MG (0.8 mL) SYRINGE ONE (14:22)
== END 2023-12-13 15:40 | disposition short-term general hospital (02) ==
LOC: CSHERS 10:51
DX: S16.1XXA Strain of muscle, fascia and tendon at neck level, initial encounter (principal); J81.0 Acute pulmonary edema; R19.7 Diarrhea, unspecified; R09.02 Hypoxemia; R11.2 Nausea with vomiting, unspecified; I13.2 Hypertensive heart and chronic kidney disease with heart failure and with stage 5 chronic kidney disease, or end stage renal disease; E11.22 Type 2 diabetes mellitus with diabetic chronic kidney disease; N18.6 End stage renal disease; I50.9 Heart failure, unspecified; Z99.2 Dependence on renal dialysis
CPT/HCPCS: 36415; 36416; 71045; 74177; 80053; 82010; 82805; 83605; 83735; 83880; 84100; 84484; 85025; 87040; 93005; 93010; 96372; 96374; J1650; J2405; Q9967